=== PATIENT | female | born 1990 | race Caucasian/White ===

== ENCOUNTER → 2016-12-17 | Outpatient (CLI) | payer OTHER ==
[~2016-12-17] MED LIST: AMOXICILLIN500 MG PO; ATIVAN0.5 MG PO; AUGMENTIN 875 M1 TAB PO; CARAFATE1 G1 PO; NKHM PO; PROTONIX40 MG PO; VICODIN 500 MG-1 TAB PO; ZOFRAN ODT4 MG SL
== END | disposition home or self-care (01) ==
LOC: LAB 14:44
DX: Z32.00 Encounter for pregnancy test, result unknown (principal)